=== PATIENT | male | born 1965 | race Caucasian/White ===

== ENCOUNTER → 2022-09-03 07:36 | Outpatient (CLI) | payer SELFPAY ==
--- NOTE | 2022-09-03 07:56 | DI.RAD.S_ITS ---
PROCEDURE: XR LUMBAR SPINE MIN 4V INDICATIONS: low back pain TECHNIQUE: 5 views of the lumbar spine were acquired, including bilateral oblique views. COMPARISON: None. FINDINGS: Bones: 5 nonrib-bearing vertebrae are present. 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 There is mild diffuse disc height loss. There is normal bony alignment. No vertebral body compression fractures. No suspicious bony lesions. Soft tissues: Overlying bowel gas pattern is normal. No suspicious soft tissue calcifications. Oblique images: No definite pars defects. IMPRESSION: Degenerative changes of the lumbar spine. No acute fractures. Dictated by: Sherwin Bailey M.D. on 09/03/2022 at 14:00 Approved by: Sherwin Bailey M.D. on 09/03/2022 at 14:02
== END ==
PROVIDERS: Referring Provider Anesthesiology; Visit Provider Anesthesiology
DX: M54.50 Low back pain, unspecified (principal); M47.816 Spondylosis without myelopathy or radiculopathy, lumbar region
CPT/HCPCS: 72110

== ENCOUNTER 2022-09-25 08:48 | Outpatient (CLI) | payer SELFPAY ==
--- NOTE | 2022-09-25 08:51 | DI.RAD.S_ITS ---
PROCEDURE: PAIN L/S TRANSFORAMINAL INJECT INDICATIONS: RADICULOPATHY COMPARISON: [facility], CR, XR LUMBAR SPINE MIN 4V, 09/03/2022, 7:55. FINDINGS: Fluoroscopic spot filming was performed to verify placement of a spinal needle at the L4-L5 level, as labeled on the films. Appropriate location of the needle tip was confirmed by injection of iodinated contrast. IMPRESSION: Intraprocedural examination within normal limits. Dictated by: Anson Alexandra M.D. on 09/25/2022 at 13:27 Approved by: Anson Alexandra M.D. on 09/25/2022 at 13:28
[2022-09-25 09:03] VITALS: BP 132/88; PULSE 95; RESP 16; TEMP 36.3; O2SAT 97
[2022-09-25 09:28] VITALS: BP 125/94; PULSE 90; RESP 17; O2SAT 96
[2022-09-25 09:33] VITALS: BP 126/73; PULSE 93; RESP 17; O2SAT 96
[2022-09-25] MEDS: IOPAMIDOL 15 ML VIAL 3 ML INJ (09:34)
[2022-09-25] MEDS: DEXAMETHASONE 10 MG/ML VIAL INJ (09:35)
--- NOTE | 2022-09-25 09:39 | P.PCN_ITS ---
Date/Time/Diagnoses Date of procedure: 09/25/22 Time of procedure: 09:30 Procedure Notes Physician: Pablo Lemos Total Fluoroscopy time (seconds): 27 Total sedation minutes: 0 Procedure in detail & Post-procedure care: Left L4-5 Transforaminal Epidural Steroid Injection Indications: Jp is presenting for treatment of lumbar radiculopathy with low back and leg pain. Preoperative diagnosis: Lumbar radiculopathy Postoperative diagnosis: Same Focused Examination: Ax3 Mood and affect are normal Vital Signs: VSS Consent: Following review of allergies and potential side effects/complications, including, but not necessarily limited to, infection, allergic reaction, local tissue breakdown, stroke, temporary or permanent nerve injury, paralysis, and possible , the patient indicated that they understood and agreed to proceed .? An informed consent document was signed by the patient, witnessed by a nurse and placed in the patient's chart.? Additionally, other treatment options including medications and physical therapy were reviewed with the patient. All questions were answered. Site was then marked. Anesthesia: Local Position: Prone Monitoring: NIBP, Pulse oximetry, 3 lead EKG Needle used: 22G 5 inch spinal needle Contrast: Isovue 300M Injectate: 10 mg Dexamethasone mixed with 1% lidocaine 1 ml and normal saline 1 mL Technique: The skin was prepped with chloraprep and draped in a sterile fashion. Time out was performed as per protocol. Oxygen applied via NC. Skin and subcutaneous structures of the needle entry site were infiltrated with 3mL of lidocaine 1%. Under fluoroscopic guidance, using an ipsilateral oblique view,?a 22 gauge 5 inch needle was advanced to the base of the left L4?pedicle.? The needle was advanced to the superio-posterior aspect of the neural foramen under lateral view.? Oblique and AP views were rechecked. No paresthesias noted by the patient during needle placement. In AP view and utilizing real-time digital subtraction fluoroscopy, 2 ml contrast was slowly injected. Epidural spread was observed without evidence for intravascular nor intrathecal uptake. Contrast spread was seen craniocaudally. The above injectate was then administered, and the needle was subsequently withdrawn. Band-Aids applied to injection sites. EBL: less than 1 ml Complications: None Post Procedure: Patient was taken to the recovery and monitored. The patient was provided a Pain Log to continue to record the patient's response to the target- specific procedure prior to the patient's follow-up visit with the referring physician. Patient was stable upon discharge. Detailed post procedure instructions were provided. Patient was asked to call in the event of worsening pain, fever, weakness, numbness or bladder or bowel incontinence.
[2022-09-25 09:43] VITALS: BP 136/88; PULSE 90; RESP 16; O2SAT 97
== END 2022-09-25 09:45 | disposition home or self-care (01) ==
PROVIDERS: PCP Family Medicine; Referring Provider Anesthesiology; Visit Provider Anesthesiology
DX: M54.16 Radiculopathy, lumbar region (principal)
CPT/HCPCS: 64483; J1100